=== PATIENT | female | born 1985 | race Caucasian/White ===

== ENCOUNTER → 2016-06-16 | Outpatient (CLI) | payer OTHER ==
[~2016-06-16] MED LIST: INDERAL 20MG20 MG PO; K-DUR 10 MEQ T10 MEQ PO; MEDROL 4MG DOSPA4 MG PO; SYNTHROID0.05 MG/TA PO
== END ==
LOC: COL.RAD 10:17
DX: E05.90 Thyrotoxicosis, unspecified without thyrotoxic crisis or storm (principal); R94.6 Abnormal results of thyroid function studies
CPT/HCPCS: A9516